=== PATIENT | male | born 1960 | race Caucasian/White ===

== ENCOUNTER → 2020-05-07 | Outpatient (CLI) | payer OTHER ==
[~2020-05-07] MED LIST: LIPITOR10 MG PO; LOSARTAN-HCTZ1 EAC3 PO; MULTI VITAMIN1 EACH PO
--- NOTE | 2020-05-07 15:50 | CARDNUC ---
[place] [address] CARDIAC NUCLEAR IMAGING REPORT Name: UZMAJASON Kelley Room: [facility]#: [id number] Admission: 05/07/20 Attend Phys: Luis Fernando Hightower DO Discharge: Date of : 64 Date of Service: 05/07/20 1549 Report #: [id number] THIS REPORT FOR: cc: Ady Wyatt Steve T. DO Liston, Michael J. MD [facility] ~ APPROVED REPORT Study performed: 05/07/2020 07:45:00 Indication: Left sided chest discomfort, left arm numbness. Patient Location: Out-Patient Stress Tech: Yahaira Felipe Stress Nurse: Tosin Avalos RN Ht: 5 ft 11 in Wt: 213 lbs BSA: 2.17 m2 BMI: 29.70 Medical History Medical History: Chest discomfort, left arm numbness, OA, HLD, HTN, occasional cigar smoker weekly, family HX CAD, meniscus knee repair. Medications: Atorvastatin, Losartan. Allergies: No known drug allergies Cardiac Risk Factors: Age, Current Smoker, FHX of CAD, HTN, Hyperlipidemia. Previous Cardiac Procedures: None Pretest Chest Pain Characteristics: None Exercise History: Physically active Physical Disabilities: None Meds Held (24 hrs): None Resting Data Rest SPECT myocardial perfusion imaging was performed in supine position 30 minutes following the intravenous injection of 11.7 mCi of Tc-99m Sestamibi. Time of rest injection: 08:00 The images were gated to evaluate regional wall motion and calculate left ventricular ejection fraction. Administration Route: IV Administration Site: Left Hand Exercise Stress At peak stress, the patient was injected intravenously with 35.6m[place] [address] CARDIAC NUCLEAR IMAGING REPORT Name: JASON GUSMAN Room: [facility]#: [id number] Admission: 05/07/20 Attend Phys: Luis Fernando Hightower DO Discharge: Date of : 64 Date of Service: 05/07/20 1549 Report #: [id number] of Tc-99m Sestamibi. Time of stress injection: 09:40 Administration Route: IV Administration Site: Left Hand Heart Rate at time of stress injection: 152 bpm. Patient continued to exercise for 1 minute(s). Gated Stress SPECT was performed 30 minutes after stress injection. The images were gated to evaluate regional wall motion and calculate left ventricular ejection fraction. Prone imaging was performed. Stress Test Details Stress Test: Exercise stress testing was performed using a Jung protocol. HR Max Heart Rate (APMHR): 162 bpm Resting HR: 68 bpm Target HR (85% APMHR): 137 bpm Max HR Achieved: 152 bpm % of APMHR: 93 Recovery HR: 96 bpm BP Resting BP: 148/97 mmHg Max BP: 191/62 mmHg Recovery BP: 128/61 mmHg ECG Resting ECG: Sinus Rhythm Stress ECG: Sinus Tachycardia ST Change: None Arrhythmia: None Recovery ECG: Sinus Rhythm Recovery ST Change: None Recovery Arrhythmia: None Clinical Reason for Termination: Completed protocol, Maximal effort, Patient Request Stress Symptoms: Dyspnea, Leg fatigue, left side chest discomfort on deep inhalation. Exercise duration: 10 min 35 sec Exercise capacity: 12.79 METs Overall Exercise Capacity for Age: Superior The patient had some atypical musculoskeletal chest pain during testing. He had no further significant chest discomfort [place] [address] CARDIAC NUCLEAR IMAGING REPORT Name: JASON GUSMAN Room: [facility]#: [id number] Admission: 05/07/20 Attend Phys: Luis Fernando Hightower DO Discharge: Date of : 64 Date of Service: 05/07/20 1549 Report #: [id number] Nurse Comments A 60 YEAR OLD MALE PRESENTED FOR A TREADMILL NUCLEAR STRESS TEST. TREADMILL TOLERATED TO STAGE 4. RECOVERY UNREMARKABLE. PATIENT WAS STABLE AND STATED HE FELT GOOD WHEN ESCORTED TO NUCLEAR MEDICINE FOR IMAGING. EXERCISE CAPACITY - SUPERIOR. Study Quality Study: Good Artifact: No artifact Study Data At rest, the left ventricular ejection fraction was 58%.. Post stress, the left ventricular ejection was 74%.. TID = 0.76. Perfusion Perfusion images obtained at rest and post stress show uniform uptake of the radioisotope throughout the myocardium. There were no defects to suggest infarct or ischemia. Wall Motion Normal left ventricular wall motion. Nuclear Conclusion ECG Findings: negative for ischemia Clinical Findings: equivocal Nuclear Findings: negative for ischemia Exercise Capacity: normal Left Ventricular Function: normal Risk Study: low Perfusion images show no defect to suggest infarct or ischemia. Left ventricular systolic function is normal on gated studies. This is a low risk study. <ELECTRONICALLY SIGNED> By: Martín Tariq MD, FACC 05/07/20 1549 1549 1549 Martín Tariq MD, FACC /INF
== END ==
LOC: M.NUC 04-30 13:48
PROVIDERS: ATTEND Family Medicine
DX: R07.9 Chest pain, unspecified (principal); I10 Essential (primary) hypertension

== ENCOUNTER 2020-12-20 10:12 | Emergency (ER) | payer OTHER ==
[~2020-12-20] VITALS: Ht 180.3 cm; Wt 95.3 kg
[2020-12-20] MEDS ORDERED: HYDROCHLOROTH12.5 M2 PO (10:36)
[2020-12-20] MEDS ORDERED: APAP W/CODEINE1 TA2 PO (11:19)
[2020-12-20] MEDS ORDERED: MEDROLDOSEPACK PO (11:19)
[2020-12-20] MEDS ORDERED: FLEXERIL PO (11:19)
[2020-12-20 11:37] VITALS: BP 152/99
== END 2020-12-20 11:38 | disposition home or self-care (01) ==
LOC: M.ERS 10:12
DX: M54.50 Low back pain, unspecified (principal); Z79.899 Other long term (current) drug therapy

== ENCOUNTER → 2021-01-13 | Outpatient (CLI) | payer OTHER ==
[~2021-01-13] MED LIST changes: +APAP W/CODEINE1 TA2 PO; +FLEXERIL PO; +HYDROCHLOROTH12.5 M2 PO; +MEDROLDOSEPACK PO
== END ==
LOC: M.MRI 13:10
DX: M51.26 Other intervertebral disc displacement, lumbar region (principal); M51.27 Other intervertebral disc displacement, lumbosacral region; M47.816 Spondylosis without myelopathy or radiculopathy, lumbar region; M47.817 Spondylosis without myelopathy or radiculopathy, lumbosacral region; M48.061 Spinal stenosis, lumbar region without neurogenic claudication